=== PATIENT | male | born 1945 | race Caucasian/White ===

== ENCOUNTER → 2020-06-14 | Outpatient (CLI) | payer BC | LOC: CARD 13:30 | PROVIDERS: ATTEND Internal Medicine Cardiovascular Disease | DX: I11.9 Hypertensive heart disease without heart failure (principal); I65.22 Occlusion and stenosis of left carotid artery; E78.2 Mixed hyperlipidemia | CPT/HCPCS: 93306 ==

== ENCOUNTER → 2020-06-25 | Outpatient (CLI) | payer BC ==
[~2020-06-25] VITALS: Ht 182 cm; Wt 76.0 kg
[~2020-06-25] MED LIST: CATHETER FLUSH 10 ML SYR IV PRN; REGADENOSON 0.4 MG/5 ML SYR (LEXISCAN) IV ONE
[2020-06-25 08:53] VITALS: BP 150/78
--- NOTE | 2020-06-25 11:14 | Cardiology Stress Test Report ---
Stress Test Report Date of Procedure/Referring: Date of Procedure: Jun 25, 2020 PCP Javi Zhang MD Admitting Physician No,Local Physician Indications: Peripheral arterial disease Baseline Heart Rate: 74 Baseline Blood Pressure: Blood Pressure Systolic: 150 Blood Pressure Diastolic: 78 Baseline Vitals Vital Signs Date Time Temp Pulse Resp B/P (MAP) Pulse Ox O2 Delivery O2 Flow Rate FiO2 06/25/20 08:53 72 150/78 (102) 99 Baseline EKG: Baseline EKG: normal sinus rhythm Summary After explaining the procedure to the patient, he signed a consent and then brought to the stress nuclear laboratory. Patient received 0.4 mg Lexiscan for stress test, ECG, heart rate and blood pressure were monitored continuously. Resting and stress dose of radio tracer were injected, imaging was acquired and reviewed in short axis, horizontal long axis and vertical long axis views. TID: 1.04 SSS: 4 SDS: 0 EF: 49 1. Patient tolerated Lexiscan well 2. Extracardiac attenuation affecting the quality of the images, there is mild decreased uptake at the mid to apical inferior wall which is fixed, no significant ischemia or infarction on SPECT images 3. Normal left ventricular size, EF 49 percent JAVI ZHANG MD Jun 25, 2020 11:14
== END ==
LOC: CARD 07:45
PROVIDERS: ATTEND Internal Medicine Cardiovascular Disease
DX: I65.22 Occlusion and stenosis of left carotid artery (principal); I10 Essential (primary) hypertension; E78.2 Mixed hyperlipidemia; I73.9 Peripheral vascular disease, unspecified
CPT/HCPCS: 78452; 93017

== ENCOUNTER → 2020-08-15 | Outpatient (CLI) | payer BC | LOC: LABNPT 08:30 | PROVIDERS: ATTEND Family Medicine | DX: Z20.822 Contact with and (suspected) exposure to COVID-19 (principal) | CPT/HCPCS: 87635 ==

== ENCOUNTER → 2021-11-29 | Outpatient (CLI) | payer BC ==
[~2021-11-29] MED LIST changes: -CATHETER FLUSH 10 ML SYR IV PRN; +NS IV 1000 ML 1,000 ML ONE; +ONDANSETRON 4 MG/2 ML (SDV) Z0FRAN ONE; -REGADENOSON 0.4 MG/5 ML SYR (LEXISCAN) IV ONE
[2021-11-29 12:15] VITALS: BP 130/69
[2021-11-29 12:33] LABS: BILIRUBIN,URINE NEGATIVE (NEGATIVE); CLARITY,URINE CLEAR; COLOR,URINE YELLOW; GLUCOSE, URINE (UA) NEGATIVE (NEGATIVE); KETONES,URINE NEGATIVE (NEGATIVE); LEUKOCYTE ESTERASE ,URINE NEGATIVE (NEGATIVE); NITRITE,URINE NEGATIVE (NEGATIVE); PH,URINE 5.5 (5-9); PROTEIN,URINE TRACE (NEGATIVE)
[2021-11-29 12:46] LABS: BACTERIA,URINE TRACE /HPF; SQUAMOUS EPITHELIAL CELL,UR RARE /HPF; WBC,URINE RARE /HPF
--- NOTE | 2021-11-29 13:00 | Diagnostic Imaging Report ---
INDICATION: Shortness of breath COMPARISON: None. Single view of the chest demonstrates atelectasis and effusion in the left base. The right lung is clear. The heart is normal. There is no pneumothorax or effusion. Osseous structures normal. IMPRESSION: Atelectasis and effusion, left base. Follow-up recommended. Dictated by: Dictated on workstation # [id number]
[2021-11-29 13:26] LABS: HEMATOCRIT 45 % (40-54); HEMOGLOBIN 15.9 g/dL (13.3-17.7); MEAN CORPUSCULAR HEMOGLOBIN 33 pg (25-34); MEAN CORPUSCULAR HGB CONC 36 g/dL (32-36); MEAN CORPUSCULAR VOLUME 92 fL (80-99); MEAN PLATELET VOLUME 9.7 fL (9.0-12.2); PLATELET COUNT 291 10^3/uL (130-400); WHITE BLOOD COUNT 16.7 10^3/uL (4.3-11.0)
--- NOTE | 2021-11-29 13:32 | Diagnostic Imaging Report ---
CT ABDOMEN/PELVIS WO TECHNIQUE: Unenhanced CT imaging of the abdomen and pelvis was performed. 2-D reformats are created and submitted for interpretation. Automatic exposure controls were utilized to optimize patient dose. INDICATION: Abdominal pain with nausea and vomiting COMPARISON: None available. FINDINGS: Evaluation of the abdominal viscera is mildly limited without contrast. Lower chest: Subtotal consolidation of bilateral lower lobes have volume loss and air bronchograms, likely due to atelectasis. Asymmetric elevation left hemidiaphragm is present. Peritoneum: No free intraperitoneal air or fluid. Liver and biliary system: Unenhanced liver is normal. Cholelithiasis without CT features of acute cholecystitis. No biliary duct dilatation. Spleen and Pancreas: Spleen is normal. Unenhanced pancreas is grossly normal. Adrenals: Normal. tract: Punctate nonobstructing bilateral ureteral stones are no ureteral stones or obstructive uropathy. Urinary bladder is decompressed. Prostate is not enlarged. GI tract: Stomach is filled with fluid and there is no wall thickening. The majority of small bowel loops are fluid-filled and borderline dilated measuring approximately 3 cm. The distal ileum is decompressed, although there is no discrete transition point. No active inflammation associated with the decompressed distal ileum. Sigmoid and descending colon diverticulosis without diverticulitis. Vasculature and Lymph nodes: Normal caliber aorta. No abdominal or pelvic lymphadenopathy. Musculoskeletal: No concerning osseous lesion. IMPRESSION: 1. Fluid-filled and mildly dilated small bowel loops could be due to partial small bowel obstruction at the level of the distal ileum. Alternatively, this could be due to enteritis. 3. Cholelithiasis without CT features of acute cholecystitis. Dictated by: Dictated on workstation # [id number]
[2021-11-29 13:46] LABS: ALBUMIN 4.5 GM/DL (3.2-4.5); BILIRUBIN,TOTAL 0.8 MG/DL (0.1-1.0); CALCIUM 9.2 MG/DL (8.5-10.1); CREATININE SERUM 1.98 MG/DL (0.60-1.30); POTASSIUM 3.4 MMOL/L (3.6-5.0); TOTAL PROTEIN 7.7 GM/DL (6.4-8.2)
== END ==
LOC: SDC 12:05
PROVIDERS: ATTEND Nurse Practitioner Family
DX: K80.20 Calculus of gallbladder without cholecystitis without obstruction (principal); J90 Pleural effusion, not elsewhere classified; J44.9 Chronic obstructive pulmonary disease, unspecified; J98.11 Atelectasis
CPT/HCPCS: 36415; 71045; 74176; 80053; 81000; 82150; 83690; 83735; 85027; 85379; 96360